=== PATIENT | male | born 1935 | race Caucasian/White ===

== ENCOUNTER 2021-08-20 12:24 | Emergency (ER) | payer OTHER ==
[2021-08-20 13:03] LABS: BASOPHIL 0.7 % (0-2); EOSINOPHIL 2.9 % (0-7); HCT 42.9 % (42.0-52.0); HGB 13.8 g/dl (13.2-18.0); LYMPHOCYTE 10.6 % (15-48); MCH 30.5 pg (25.0-31.0); MCHC 32.2 g/dL (32.0-36.0); MCV 94.7 fL (78.0-100.0); MONOCYTE 10.7 % (0-12); MPV 10.8 fL (6.0-9.5); NEUTROPHIL 74.8 % (41-80); NRBC 0; PLT 191 K/uL (150-400); RBC 4.53 M/uL (4.70-6.00); RDW 13.3 % (11.5-14.0); WBC 9.1 K/uL (4.0-10.5)
[2021-08-20 13:15] LABS: ALBUMIN 3.6 g/dL (3.4-5.0); BILIRUBIN - TOTAL 0.6 mg/dL (0.2-1.0); BUN/CREAT RATIO (CALC) 18.8 RATIO; CREATININE 0.85 mg/dL (0.67-1.17); GLOBULIN (CALCULATION) 3.2 g/dL; POTASSIUM 4.2 mmol/L (3.5-5.1); TOTAL PROTEIN 6.8 g/dL (6.4-8.2)
[2021-08-20 13:32] LABS: BILIRUBIN 1+ mg/dL (NEGATIVE); BLOOD 3+ Ery/uL (NEGATIVE); CLARITY CLEAR (CLEAR); COLOR YELLOW (YELLOW); GLUCOSE (U) NORMAL (NORMAL); LEUKOCYTES NEGATIVE Leu/uL (NEGATIVE); NITRITE NEGATIVE (NEGATIVE); PROTEIN 1+ mg/dL (NEGATIVE); SPECIFIC GRAVITY >=1.030 (1.001-1.030); UROBILINOGEN 0.2 mg/dL (0.2-1.0)
[2021-08-20 13:57] LABS: BACTERIA 1+
== END 2021-08-20 17:45 | disposition home or self-care (01) ==
LOC: FER 12:24
PROVIDERS: Nurse Practitioner Family
DX: N20.2 Calculus of kidney with calculus of ureter (principal); E78.5 Hyperlipidemia, unspecified; I10 Essential (primary) hypertension
CPT/HCPCS: 36415; 71045; 80053; 81001; 84484; 85025; 87088